=== PATIENT | male | born 1955 | race Caucasian/White ===

== ENCOUNTER 2018-07-18 07:08 | Inpatient (IN) | payer BC ==
[2018-07-18] VITALS (15 sets, daily range): BP systolic 122–155; BP diastolic 69–92
[~2018-07-18] VITALS: Ht 180.3 cm; Wt 92.1 kg
[~2018-07-18 07:08] MED LIST: AMBIEN10 MG ORAL; CYMBALTA30 MG ORAL; HYDROCODON-ACE1 EA13 ORAL; KLONOPIN0.5 MG ORAL; MULTIVITAMINS1 EAC2 ORAL; OMEPRAZOLE40 M1 ORAL; PERCOCET 10-321 EACH ORAL; SPIRONOLACTONE100 MG ORAL; VITAMIN B COMP1 EAC2 ORAL
[2018-07-18] MEDS ORDERED: LR 1000ml 1,000 ML IVLG SCH (09:18)
--- NOTE | 2018-07-18 09:20 | Anethesia Preoperative Eval ---
Anesthesia Pre-op PMH/ROS General Date of Evaluation: Jul 18, 2018 Time of Evaluation: 10:48 Anesthesiologist: Viridiana ASA Score: ASA 3 Mallampati Score Class I : Soft palate, uvula, fauces, pillars visible Class II: Soft palate, uvula, fauces visible Class III: Soft palate, base of uvula visible Class IV: Only hard plate visible Mallampati Classification: Class III Surgeon: Samuel Diagnosis: Back Pain Surgical Procedure: ALIF L3-4 Anesthesia History: none Family History: no anesthesia problems Allergies: Coded Allergies: HYDROMORPHONE (Verified Allergy, Severe, Rash, REDNESS, ITCHING , 07/17/18) GABAPENTIN (Verified Adverse Reaction, Severe, MOOD CHANGES, 07/17/18) Medications: see eMAR Patient NPO?: Yes NPO Date: Jul 17, 2018 NPO Time: 2300 Past Medical History Cardiovascular: Reports: HTN Pulmonary: Reports: asthma Neurologic/Psychiatric: Reports: depression/anxiety, other - Vertigo Musculoskeletal/Integumentary: Reports: other - Back Pain Other: obesity - BMI 30 Anesthesia Pre-op Phys. Exam Physician Exam Last Vital Signs Date Time Temp Pulse Resp B/P (MAP) Pulse Ox O2 Delivery O2 Flow Rate FiO2 07/18/18 09:08 97.5 64 18 136/79 (98) 98 Constitutional: NAD Neurologic: CN 2-12 intact Cardiovascular: RRR Respiratory: CTA Airway Exam Mallampati Score: Class III MO: full ROM: limited Teeth: intact Anesthesia Pre-op A/P Risk Assessment & Plan Assessment: ASA 3 Plan: GA, SED, GlideScope Go Status Change Before Surgery: No Pre-Antibiotics Dru Grams Ancef IV Given Within 1 Hr of Incision: Yes Time Given: 11:06 Carrillo Kemp MD Jul 18, 2018 09:20
[2018-07-18] MEDS ORDERED: Acetaminophen (Non formulary) 100 ML IV ONE (09:30)
[2018-07-18] MEDS ORDERED: Ketorolac 30mg Inj IV PRN ×2 (09:30)
[2018-07-18] MEDS ORDERED: DiphenhydrAMINE 50mg/ml Inj IVP PRN (09:30)
[2018-07-18] MEDS ORDERED: Midazolam 2mg/2ml Inj IVP PRN (09:30)
[2018-07-18] MEDS ORDERED: LORazepam Inj 2mg/ml 1ml IV PRN (09:30)
[2018-07-18] MEDS ORDERED: Metoclopramide 10mg/2ml Inj IVP PRN (09:30)
[2018-07-18] MEDS ORDERED: Meperidine 50mg/ml Inj(FOR RIGORS ONLY) IVP PRN (09:30)
[2018-07-18] MEDS ORDERED: Labetalol 5mg/ml 20ml vial IV PRN (09:30)
[2018-07-18] MEDS ORDERED: fentaNYL 100 mcg/2 mL IV PRN (09:30)
[2018-07-18] MEDS ORDERED: Atropine Sulfate 0.4mg/ml inj IVP PRN (09:30)
[2018-07-18] MEDS ORDERED: Bupivacaine w/Epi 0.5% 30ml Vial INJ ONE (09:59)
[2018-07-18] MEDS ORDERED: Thrombin 5000 units TOPIC ONE (09:59)
[2018-07-18] MEDS ORDERED: Gelfoam Size TOPIC ONE (09:59)
[2018-07-18] MEDS ORDERED: Bacitracin 50000 Units Vial ONE (10:00)
[2018-07-18] MEDS ORDERED: Heparin 5000 units/ml inj ONE (10:04)
[2018-07-18] MEDS ORDERED: fentaNYL 100 mcg/2 mL IV ONE ×3 (10:04→11:59)
[2018-07-18] MEDS ORDERED: Dexamethasone 4mg/ml vial ONE (10:04)
[2018-07-18] MEDS ORDERED: Lidocaine 1% MPF 10mg/ml 5ml ONE (10:04)
[2018-07-18] MEDS ORDERED: Sodium Chloride 10ml vial INJ ONE (10:04)
[2018-07-18] MEDS ORDERED: Lidocaine 1% Plain 30 ml INJ ONE ×2 (10:05→12:30)
[2018-07-18] MEDS ORDERED: Ketamine 500mg Inj ONE (10:05)
[2018-07-18] MEDS ORDERED: Zemuron 50mg/5ml Inj IV ONE (10:15)
--- NOTE | 2018-07-18 10:27 | Pre-Procedure Note/Attestation ---
Pre-Procedure Note/Attestation Complete Prior to Procedure Planned Procedure: not applicable Procedure Narrative: L3-4 ALIF Indications for Procedure Pre-Operative Diagnosis: L3-4 instability Attestation I attest that I discussed the nature of the procedure; its benefits; risks and complications; and alternatives (and the risks and benefits of such alternatives ), prior to the procedure, with the patient (or the patient's legal inbound call center representative). I attest that, if there was a reasonable possibility of needing a blood transfusion, the patient (or the patient's legal inbound call center representative) was given the [facility] standardized written summary, pursuant to the Deangelo Alon Blood Safety Act ([place] Health and Safety Code # 1645, as amended). I attest that I re-evaluated the patient just prior to the surgery and that there has been no change in the patient's H&P, except as documented below: SANDRO HYATT Jul 18, 2018 10:27
[2018-07-18] MEDS ORDERED: LR 1000ml ONE (11:00)
[2018-07-18] MEDS ORDERED: Propofol 1,000mg/ 100ml btl IV ONE (11:00)
[2018-07-18] MEDS ORDERED: NS Irrig 1000ml ONE (11:00)
[2018-07-18] MEDS ORDERED: Sterile Water Irrig 1000ml IRRIG ONE (11:00)
--- NOTE | 2018-07-18 11:28 | Immediate Post-Op Evaluation ---
Immediate Post-Op Evalulation Immediate Post-Op Evalulation Procedure: ALIF L3-4 Date of Evaluation: Jul 18, 2018 Time of Evaluation: 14:08 IV Fluids: 1000 LR Blood Products: 0 Estimated Blood Loss: 150 Urinary Output: 150 Blood Pressure Systolic: 155 Blood Pressure Diastolic: 92 Pulse Rate: 73 Respiratory Rate: 16 O2 Sat by Pulse Oximetry: 99 Temperature (Fahrenheit): 97 Pain Score (1-10): 2 Nausea: No Vomiting: No Complications 0 Patient Status: awake, reacts, patent, extubated, none Hydration Status: adequate Dru Grams Ancef IV Given Within 1 Hr of Incision: Yes Time Given: 11:06 Carrillo Kemp MD Jul 18, 2018 11:28
[2018-07-18] MEDS ORDERED: Labetalol 5mg/ml 20ml vial IV ONE (12:14)
--- NOTE | 2018-07-18 13:45 | NUR ---
NURSE NOTES: REC'D FROM PACU SP ALIF WITH ALLOGRAFT L3-L4. AWAKE/ALERT. IV INFUSING. ABDOMINAL DRESSING DRY AND INTACT. V/S TAKEN. PAIN SCALE 8/10. C/O DRYNESS LEFT. IN NO ACUTE DISTRESS. DR Ani PRATT HERE TO SEE PT FOR FURTHER ORDERS.
--- NOTE | 2018-07-18 13:56 | Brief Operative Note ---
Immediate Post Operative Note Operative Note Chief Complaint: LBP Pre-op Diagnosis: L3-4 instability Procedure: L3-4 ALIF Post-op Diagnosis: same as pre-op Findings: consistent w/pre-op dx studies Surgeon: Pineda Baker Systems Software Manager: Estephanie Ponce Additional Surgeons: Kari Patterson Anesthesiologist: Shon Dillon Anesthesia: general Specimen: yes - Disc Complications: none Condition: stable Fluids: See Anesth Estimated Blood Loss: minimal Drains: none Implant(s) used?: Yes - Trever PLUNKETT TOORAJ Jul 18, 2018 13:56
[2018-07-18] MEDS ORDERED: HYDROmorphone 1mg/ml Carpuject SUBQ SCH (16:27)
[2018-07-18] MEDS ORDERED: PCA HYDROmorphone 30mg/30ml Syr IV PRN (16:28)
[2018-07-18] MEDS ORDERED: Rate Change PCA 1 Each MISC PRN (16:30)
[2018-07-18] MEDS ORDERED: PCA Education Pamphlet MISC ONE (16:30)
[2018-07-18] MEDS ORDERED: Chloraseptic Spray 20mL Bottle ORAL PRN (16:30)
[2018-07-18] MEDS ORDERED: HYDROmorphone 1mg/ml Carpuject SUBQ PRN (16:30)
[2018-07-18] MEDS ORDERED: Zolpidem 5mg tab ORAL PRN (16:45)
--- NOTE | 2018-07-18 16:47 | Diagnostic Imaging Report ---
INDICATION: Pain, intraoperative TECHNIQUE: Intraoperative imaging Fluoroscopy time: 22.4 seconds Total dose: 0.29620 mGym2 Total number of images: 4 COMPARISON: None FINDINGS: 6 surgical tool's projected anterior to the top of L4 and the bottom of L4 on initial images. Subsequent images document placement of anterior fusion hardware and a disc spacer at L3-4. IMPRESSION: Intraoperative imaging, as described
[2018-07-18] MEDS: Artificial Tears 1.4% Op Soln LEFT EYE PRN ×2 (16:49→20:29)
[2018-07-18] MEDS ORDERED: Dronabinol 2.5mg Cap ORAL SCH (18:00)
[2018-07-18] MEDS: Docusate 100mg cap ORAL SCH (18:10)
[2018-07-18] MEDS ORDERED: ceFAZolin sod 1 GM in D5W 55 ML IV SCH (19:00)
--- NOTE | 2018-07-18 19:05 | NUR ---
NURSE NOTES: quiet in bed. in no apparent distress.
--- NOTE | 2018-07-18 19:08 | NUR ---
HAND-OFF: Report given to Misa BLACKWOOD RN.
[2018-07-18] MEDS: PCA shift volume MISC SCH (19:10)
--- NOTE | 2018-07-18 19:26 | NUR ---
NURSE NOTES: Report taken from SEBASTIAN Han. Patient is awake and in bed, partner at bedside. A&Ox4. No signs of distress on 2L NC, is asking to get humidified, will follow up with respiratory. Having some minor complaints of pain and soreness, 04/15, instructed use of RN INTERVENTIONAL (Bolus .). Skin is intact, surgical site c/d/i, ice pack in place. IV site c/d/i and patent, running D5NS+20KCl at 125 mls/hr. Garcia c/d/i and patent, draining yellow urine, continue to monitor output. Bed in lowest position, call light within reach.
[2018-07-18] MEDS: Dronabinol 2.5mg Cap ORAL SCH (20:31)
[2018-07-18] MEDS: Tamsulosin 0.4mg cap ORAL SCH (20:31)
[2018-07-18] MEDS: Zolpidem 5mg tab ORAL PRN (21:55)
[2018-07-18] MEDS: ceFAZolin sod 1 GM in D5W 55 ML IV SCH (23:03)
--- NOTE | 2018-07-18 23:45 | Consultation ---
DATE OF CONSULTATION: 07/18/2018 CONSULTING PHYSICIAN: Dick Burroughs M.D. REFERRING PHYSICIAN: Denis Baker M.D. REASON FOR CONSULTATION: Acute pain consult. HISTORY OF PRESENT ILLNESS: Thank you kindly for consulting me to evaluate and render an opinion as to how to proceed in the management of the patient's acute postoperative lumbar spine pain after his lumbar spine fusion surgery today. The patient is a pleasant 62-year-old gentleman with a long history of lumbar spine pain. He had undergone previous lumbar spine surgery with his last surgery back in January 2018. He was found to have a fractured lumbar spine with his previous surgery and required lumbar spine fusion surgery today. He has been using hydrocodone 20 mg 2 or 3 times per day in addition to nightly oxycodone 10 mg. He also uses Ambien at bedtime for severe insomnia and a couple times per month does use medical marijuana edible to help with his pain control. He also is benzodiazepine dependent using Klonopin 0.5 mg tablets, typically 6 tablets daily. On your request, I saw the patient for acute pain consultation. I saw the patient at bedside. I performed a detailed history and physical examination. I discussed the case with yourself, Dr. Baker along with the hospital pharmacist, Joseph. I also spoke with the Orthopedic floor nurse, SEBASTIAN Han. PAST MEDICAL HISTORY: 1. Acute postoperative lumbar spine pain, status post lumbar spine fusion surgery and instrumentation by Dr. Denis Baker in July 2018. 2. Chronic anxiety. 3. Fibromyalgia. 4. Severe insomnia, chronic. 5. Hypertension. 6. History of severe obesity status post gastric sleeve with significant weight reduction. 7. GERD. 8. Erectile dysfunction. PAST SURGICAL HISTORY: Multiple shoulder surgeries and two previous lumbar spine surgeries. MEDICATIONS AT HOME: Nuvigil, vitamins, Klonopin 0.5 mg 1 to 2 tablets four times per day, typically taking 6 tablets daily, Cymbalta 20 mg b.i.d., [place] 10/325 two tablets b.i.d, multivitamin, Prilosec 40 mg daily, Percocet 10/325 at bedtime, Ambien 10 mg at bedtime, and p.r.n. Viagra. ALLERGIES: Dilaudid is tolerable, but does cause itching. There is an allergy to gabapentin. REVIEW OF SYSTEMS: Per attending physician. SOCIAL HISTORY: The patient does use edible marijuana approximately twice per month. FAMILY HISTORY: Noncontributory. PHYSICAL EXAMINATION: VITAL SIGNS: Age 62, height 180 cm, weight 92 kilograms, and body mass index 28. HEENT: Normocephalic, atraumatic. Nasal cannula oxygen in place. Extraocular muscles intact. Pupils are equal, round, reactive to light, and accommodative. CARDIOPULMONARY: Within normal limits. Regular rate and rhythm. CHEST: Clear to auscultation. ABDOMEN: Tender by incision area with absent bowel sounds. No rebound or guarding. EXTREMITIES: Moving all extremities x4. A 5/5 dorsiflexion and 5/5 plantar flexion in bilateral lower extremities. NEUROLOGIC: Detailed neurologic exam per Dr. Baker. GENITOURINARY: Garcia catheter in place. LABORATORY AND DIAGNOSTIC DATA: Laboratory studies from 06/28/2018 shows BUN 22, glucose 107, creatinine 0.9, sodium 141, potassium 4.1, chloride 106, bicarb 22, and calcium 9.8. Total protein 7.1. Albumin 4.4. Total bilirubin 0.4. Alkaline phosphatase 86, AST 16, and ALT 17. White count 6, hematocrit 43, and platelets 252,000. Hepatitis A, B, and C are all negative. HIV negative. INR 1.1. A 12-lead EKG shows sinus bradycardia, ventricular rate 56, no evidence for acute cardiac ischemia. Bone mineral density testing of the left hip and lumbar spine within normal limits dated 06/22/2018. IMPRESSION: 1. Acute postoperative lumbar spine pain, status post lumbar spine fusion surgery and instrumentation by Dr. Denis Baker in July 2018. 2. Chronic anxiety. 3. Fibromyalgia. 4. Severe insomnia, chronic. 5. Hypertension. 6. History of severe obesity status post gastric sleeve with significant weight reduction. 7. GERD. 8. Erectile dysfunction. TREATMENT RECOMMENDATIONS: The patient's narcotic history as detailed above. He is benzodiazepine dependent. He has been taking short-acting Klonopin chronically at considerable dosing and frequencies. He states that he takes 0.5 mg tablets. He often takes 2 tablets at a time and often takes a total of 3 mg throughout the day. I inquired if he had ever been on a longer-acting benzodiazepine chronically. He denies, but states that he believes he has used Valium before without any adverse problems. The patient is here in the hospital, I would recommend a more of long-acting benzodiazepine. He has been benzodiazepine dependent. He does have chronic fibromyalgia and anxiety. So, I will start him on a dose of Valium 5 mg every 12 hours at 6 a.m. and 6 p.m. for baseline anxiolysis and antispasm treatment. The patient has been using considerable doses of [place] and oxycodone chronically as well. I spoke with the hospital pharmacist, Joseph, to start him on a Dilaudid SENIOR PRINCIPAL PROCESS ENGINEER with a 0.2 mg demand dose at 10-minute lockout and a 4 mg 4-hour limit. There will be no underlying basal rate on the SENIOR PRINCIPAL PROCESS ENGINEER. I have made available a breakthrough dose of Dilaudid 1 mg subcutaneously every three hours p.r.n. for severe breakthrough pain. The patient states that he can tolerate Dilaudid when anti itching medications have been used. Benadryl will be available 25 mg q.6 hours for itching symptoms. The patient does admit to using edible medical marijuana a few times per month. The patient has very severe insomnia, so I have ordered 2.5 mg of nightly Marinol to see if this helps with his insomnia and pain complaints. His Cymbalta will be restarted for mood stabilization and chronic anxiolysis. The patient has stated that his usage of Nuvigil, which he takes daily for his fibromyalgia, can be withheld while he is here in the hospital. I have ordered a breakthrough dose of oxycodone 50 mg orally every three hours p.r.n. for mild pain. I will restart Protonix for GI ulcer prophylaxis. I will add a p.r.n. dose of Mylanta 30 mL q.6 hours in case of any GERD symptom exacerbation. I will continue his clonazepam for panic attacks on a p.r.n. basis q.8 hours 1 mg dosing. I have added Flomax to help her avoid urinary retention issues after surgery. He will be restarted on his spironolactone 20 mg tomorrow morning if his blood pressure tolerates. I have ordered a p.r.n. dose of clonidine 0.1 mg orally every 8 hours for systolic blood pressure readings greater than 160 mmHg. The patient will remain NPO except for ice chips until he shows voodoo of bowel function after his ALIF surgical fusion surgery. I will place him on 125 mL of IV fluids for intravascular rehydration. The patient is complaining of left eye irritation. This likely occurred during surgery. Artificial Tears have ordered to the bedside for topical relief, we would expect spontaneous improvement in the next 24 hours. I have ordered Chloraseptic spray to the bedside to help with any sore throat complaints postoperatively. The patient has good social support with his partner, Dick providing assistance of activities of daily living. The patient seems quite realistic with his pain level expectations with his chronic opioid and benzodiazepine dependence. We will see how the patient progresses with physical therapy tomorrow. Dick Burroughs M.D. DR: TIMMY JOB#: [id number] CC:
[2018-07-19 03:49] VITALS: BP 119/72
[2018-07-19] MEDS: ceFAZolin sod 1 GM in D5W 55 ML IV SCH ×2 (06:24→15:36)
[2018-07-19] MEDS: PCA shift volume MISC SCH ×2 (07:00→19:00)
--- NOTE | 2018-07-19 07:20 | NUR ---
NURSE NOTES: Report received from Jase RN, rounds made. Patient sitting in high fowlers position in bed. Alert, oriented x4, calm. ELEMENTARY SCHOOL REGISTRAR (Dilaudid) and IVF D5 NS +20KCL at 125 ml infusing to RH, site asymptomatic. No NV. Flatulence +. Bowel sounds hypoactive. Pain 6/10 to abdominal surgical site, tolerating ELEMENTARY SCHOOL REGISTRAR, denies need for additional pain medication. O2 3L NC in place, no SOB or distress noted. Abdominal dressing CDI. FC in place, patent, y/cl urine. Bilateral SCDs on. CMS+, skin warm, wiggles, pulses palpable, no NT. Encouraged IS use. Call light in reach, bed in lowest position, will continue to monitor.
--- NOTE | 2018-07-19 07:36 | NUR ---
HAND-OFF: Report given to SEBASTIAN Pizano. Patient is awake and alert, VS stable.
[2018-07-19 08:00] VITALS: BP 139/89
--- NOTE | 2018-07-19 08:00 | Progress Note ---
DATE: 07/19/2018 ACUTE PAIN MANAGEMENT PHYSICIAN PROGRESS NOTE MEDICATIONS: Medication administration record reviewed. Medications include Mylanta, artificial tears, Klonopin, Catapres, Valium, Benadryl, Colace, Marinol, Cymbalta, ___ AIR EXPORT LOGISTICS MANAGER Dilaudid, multivitamin, Narcan, Zofran, oxycodone, Protonix, Chloraseptic spray, Aldactone, Flomax, Ambien, vitamin B. LABORATORY STUDIES: No interval laboratory studies. OBJECTIVE: VITAL SIGNS: Afebrile, pulse 77, respirations 18, blood pressure 119/72, oxygen saturation 98% on supplemental oxygen. I spent over 60 minutes in consultation today. I saw the patient at bedside. I discussed the case with the surgeon, Dr. Baker along with the nurse RN, Jase and charge nurse, RN, Josefina. The patient has been doing quite well overnight. He slept well with his at bedtime Marinol. He has been tolerating the Dilaudid AIR EXPORT LOGISTICS MANAGER without any adverse side effects. The q.12 hours dosing of Valium has been well tolerated and I believe this helped him very well with anxiolysis and to avoid panic attacks. His left eye has improved with usage of the artificial tears; expected resolution of his left eye irritation was expected. The patient will begin ambulating with physical therapy later today. I did encourage the patient to be ____ p.r.n. pain medications as well as with his AIR EXPORT LOGISTICS MANAGER dosing to enable movement in and out of bed. He is having significant pain with log-rolling. I did encourage him to optimize his ambulation efforts with adequate analgesia. The patient is passing positive flatus after his ALIF procedure. I will start him on clear liquids this morning and continue IV fluids as well. For now, the patient is on Flomax to help reduce urinary retention issues once the Garcia catheter ____ did courage aggressive incentive spirometer usage. Overall, the patient is progressing well. We will continue supportive care at this time. Dick Burroughs M.D. DR: LULÚ JOB#: [id number] CC:
[2018-07-19] MEDS: Vitamin B Complex Tab ORAL SCH (08:14)
[2018-07-19] MEDS: Spironolactone 25mg tab ORAL SCH (08:19)
[2018-07-19] MEDS: Docusate 100mg cap ORAL SCH ×3 (08:19→19:00)
--- NOTE | 2018-07-19 10:53 | 48 Hour Post Anesthesia Eval ---
Post Anesthesia Evaluation Procedure: ALIF L3-4 Date of Evaluation: Jul 19, 2018 Time of Evaluation: 10:52 Blood Pressure Systolic: 136 0: 58 Pulse Rate: 72 Respiratory Rate: 20 Temperature (Fahrenheit): 97.6 O2 Sat by Pulse Oximetry: 98 Airway: patent Nausea: No Vomiting: No Pain Intensity: 2 Hydration Status: adequate Cardiopulmonary Status: stable Mental Status/LOC: patient returned to baseline Follow-up Care/Observations: n/a Post-Anesthesia Complications: none Follow-up care needed: N/A Kaden Xiao MD Jul 19, 2018 10:53
--- NOTE | 2018-07-19 11:26 | NUR ---
P.T NOTE: P.T EVALUATION COMPLETED AND TREATMENT INITIATED PER SPINAL PROTOCOL. PLEASE REFER TO .T EVALUATION FOR CURRENT FUNCTIONAL STATUS. SKILLED P.T SERVICE IS WARRANTED TO ENSURE MOBILITY INDEPENDENCE AND SAFETY WHILE ADHERING WITH SPINAL/MOVEMENT PRECAUTIONS.
[2018-07-19 11:30] VITALS: BP 142/78
--- NOTE | 2018-07-19 12:17 | NUR ---
CASE MANAGEMENT: INITIAL REVIEW 62 YO M PRESENTED TO OUR ED FROM HOME FOR SURGERY PMHx: ASTHMA. ANXIETY. HTN. ED. GERD. SI:SPINAL INSTABILITY. HR 77 RR 18 B/P 119/72 SATS 98% ON RA IS: OR MEDS PATIENT ADMITTED TO MED/SURG 07/19/2018 @ 0800 DCP: PATIENT TO BE DISCHARGED TO HOME ONCE MEDICALLY CLEARED. PLAN OF CARE: Pre-op Diagnosis: L3-4 instability Procedure: L3-4 ALIF Post-op Diagnosis: same as pre-op Addendum: 07/19/18 at 1451 by Anjelica Samayoa INTERQUAL MET
[2018-07-19 15:54] VITALS: BP 134/84
--- NOTE | 2018-07-19 15:59 | NUR ---
*-* NO INSURANCE INFORMATION IN THE BAR TO SEND CLINICALS *-*
--- NOTE | 2018-07-19 17:00 | NUR ---
NURSE NOTES: Patient up ambulated in halls x2 with PT and lumbar support brace. Gait steady. Up to chair. Activity tolerance good. Denies SOB or dizziness. Abdominal dressing remains CDI. Medicated with Benadryl due to itching, effective. Will continue to monitor.
--- NOTE | 2018-07-19 19:30 | NUR ---
NURSE NOTES: Received report from SEBASTIAN Pizano and rounds made. Received pt laying in bed wanting to go to the restroom. Assisted pt OOB to the restroom, gait steady, no distress noted. Pain level 3/10. Surgical dressing C/D/I. TOXICOLOGY TEACHER checked and verified. IV R hand patent and intact. Pt safely back in bed w/o any distress noted. Safety measures maintained. Call light within reach. Will contineu to monitor.
--- NOTE | 2018-07-19 19:45 | NUR ---
HAND-OFF: Report given to Ankush Meng RN. Garcia output 1300 ml y/cl. Endorsed POC.
[2018-07-19 20:00] VITALS: BP 132/87
--- NOTE | 2018-07-19 20:00 | NUR ---
NURSE NOTES: Pt c/o abdominal distention and pressure. Denies nausea or vomiting. Mylanta 30cc PO given, tolerated without any problem. Will continue to monitor.
--- NOTE | 2018-07-19 21:00 | NUR ---
NURSE NOTES: Per Pt Karthik helped. Denies any pain at this time. Will continue to monitor.
[2018-07-19] MEDS: Tamsulosin 0.4mg cap ORAL SCH (21:10)
[2018-07-19] MEDS: Dronabinol 2.5mg Cap ORAL SCH (21:10)
[2018-07-19] MEDS: Zolpidem 5mg tab ORAL PRN (22:33)
[2018-07-20] VITALS: BP 115/74
[2018-07-20 06:00] VITALS: BP 134/81
--- NOTE | 2018-07-20 06:00 | NUR ---
NURSE NOTES: Garcia catheter removed per Dr. Burroughs's order. Pt due to void. Urinal at bedside. Will continue to monitor.
--- NOTE | 2018-07-20 06:04 | NUR ---
NURSE NOTES: PHARMACY BUYER discontinued per Dr. Burroughs's order. Pt's pain level 3/10, no distress noted. Instructed pt call if need pain medication.
--- NOTE | 2018-07-20 06:20 | NUR ---
NURSE NOTES: Pt voided per urinal 300ml yellow color urine.
--- NOTE | 2018-07-20 07:25 | NUR ---
NURSE NOTES: Report received from Ankush Meng RN, rounds made. Patient resting in semi-fowlers position in bed. Alert, oriented x4, calm. RH heplock, intact. Voided 300 ml y/cl in urinal without difficulty, at this time. Bilateral SCDs off. No distress on RA. Reinforced IS use. Pain to abdominal surgical site 5/10, denies bloating discomfort. Abdominal surgical site CDI. Call light in reach, bed in lowest position, will continue to monitor.
--- NOTE | 2018-07-20 07:34 | NUR ---
HAND-OFF: Report given to SEBASTIAN Pizano. Pt in stable condition.
--- NOTE | 2018-07-20 07:45 | Progress Note ---
DATE: 07/20/2018 ACUTE PAIN MANAGEMENT PHYSICIAN PROGRESS NOTE MEDICATIONS: Medication administration record reviewed. Medications include Colace, Flomax, Cymbalta, Aldactone, multivitamin, Protonix, vitamin B, Valium, Marinol, Artificial Tears. PRN medications include oxycodone, Zofran, Dilaudid, Catapres, Chloraseptic spray, Klonopin, Benadryl, Mylanta, Ambien. LABORATORY STUDIES: No interval laboratory studies. OBJECTIVE: VITAL SIGNS: Within normal limits. Afebrile, pulse 83, respirations 18, blood pressure 134/81, and oxygen saturation 98% on room air. I spent over 60 minutes in consultation today. I saw the patient at bedside with the nurse RN, Ankush. I spoke with the surgeon, Dr. Baker. The Garcia catheter was removed and the patient has been voiding urine well. He has been passing flatus regularly and his abdominal distention has resolved. The patient has been tolerating full liquid diet without any difficulties. We will advance his diet to soft mechanical. The patient has been ambulating aggressively with physical therapy and doing very well. The patient is breathing comfortably and using his incentive spirometer with good compliance. He has no fevers postoperatively. The patient has excellent support with his partner, Dick who will pick the patient up later today and cares for the patient at home and assists with activities of daily living. At this point, I see no contraindication for discharge trial home. I left the prescription for Valium and Percocet for outpatient usage. The patient follow up with Dr. Baker in approximately one week in the outpatient surgical clinic for follow up. Dick Burroughs M.D. DR: LULÚ JOB#: [id number] CC:
[2018-07-20 08:00] VITALS: BP 126/88
--- NOTE | 2018-07-20 08:00 | Discharge Summary ---
DATE OF ADMISSION: 07/18/2018 DATE OF DISCHARGE: 07/20/2018 ADMITTING PHYSICIAN AND SURGEON: Denis Baker M.D. CONSULTING PHYSICIAN: Dick Burroughs M.D., pain management. ADMITTING DIAGNOSIS: Lumbar L3-L4 instability. POSTOPERATIVE DIAGNOSIS: Lumbar L3-L4 instability. HOSPITAL COURSE: The patient was admitted on July 18, 2018 for elective L3-L4 anterior lumbar interbody fusion surgery for lumbar spine instability. The patient underwent lumbar spine fusion surgery without difficulty and was transferred from the operating room to the recovery room in stable condition. The patient did well in recovery room was transferred to the orthopedic hospital floor in stable condition. Serial monitoring was performed. The patient advanced well with physical therapy and zoroastrianism of bowel function. His diet was advanced without complications and pain was adequately controlled with parental and eventually oral analgesics. The patient was discharged to home in the care of his partner Dick with outpatient surgical follow-up scheduled for approximately one week. There were no complications. Dick Burroughs M.D. DR: Jayde JOB#: [id number] CC:
--- NOTE | 2018-07-20 08:13 | NUR ---
NURSE NOTES: Tolerating soft breakfast, denies NV at this time, encouraged PO fluid intake, will continue to monitor.
--- NOTE | 2018-07-20 09:06 | NUR ---
INSURANCE NO B/AR INFO AT THIS TIME.
[2018-07-20] MEDS: Docusate 100mg cap ORAL SCH (09:18)
[2018-07-20] MEDS: Spironolactone 25mg tab ORAL SCH (09:18)
[2018-07-20] MEDS: Vitamin B Complex Tab ORAL SCH (09:18)
[2018-07-20] MEDS: oxyCODONE 5mg IR tab ORAL PRN ×2 (11:17→14:40)
[2018-07-20 12:00] VITALS: BP 135/74
--- NOTE | 2018-07-20 12:00 | NUR ---
NURSE NOTES: Patient with low grade temperature, 100.4, rechecked at 0922, 99.5. Encouraged IS and hydration. Rechecked at 1200, 97.9. Will continue to monitor.
--- NOTE | 2018-07-20 15:11 | General Progress Note ---
Assessment/Plan Status: doing well, stable, progressing, tolerating diet, ambulating well Status Narrative Pain resolved Frida PO Ambulate Will send home w walker Subjective Date patient seen: Jul 20, 2018 Allergies: Coded Allergies: GABAPENTIN (Verified Adverse Reaction, Severe, MOOD CHANGES, 07/17/18) Objective Last 24 Hour Vital Signs Date Time Temp Pulse Resp B/P (MAP) Pulse Ox O2 Delivery O2 Flow Rate FiO2 07/20/18 12:00 97.9 78 20 135/74 (94) 92 07/20/18 09:22 99.5 07/20/18 09:00 Room Air 07/20/18 08:00 100.4 81 19 126/88 (101) 94 07/20/18 06:04 18 07/20/18 06:00 99.4 83 18 134/81 (98) 98 07/20/18 04:00 18 07/20/18 00:00 18 07/20/18 00:00 99.0 77 18 115/74 (88) 99 07/19/18 21:00 Nasal Cannula 3.0 07/19/18 20:00 18 07/19/18 20:00 100.5 75 18 132/87 (102) 98 07/19/18 16:00 18 07/19/18 15:54 98.1 70 18 134/84 (101) 96 Intake and Output 07/19/18 07/20/18 19:00 07:00 Intake Total 3026 ml 1955 ml Output Total 2150 ml 2100 ml Balance 876 ml -145 ml Intake Oral 1776 ml 580 ml IV Total 1250 ml 1375 ml Output Urine Total 2150 ml 2100 ml Height (Feet): 5 Height (Inches): 11.00 Weight (Pounds): 203 Neurologic: alert - Good strength bilateral lower extremities and sensation intact., oriented x 3, other - Wound c/D/I SANDRO HYATT Jul 20, 2018 15:11
[2018-07-20] MEDS ORDERED: VALIUM5 MG ORAL (16:17)
[2018-07-20] MEDS ORDERED: PERCOCET 10-321 EACH ORAL (16:18)
--- NOTE | 2018-07-20 16:45 | NUR ---
NURSE NOTES: Discharge instructions and prescription x1 reviewed with patient and partner, verbalized understanding. IV heplock discontinued, no active bleeding. Abdominal surgical dressing clean and dry. Raised toilet seat and FWW provided from central supply, given to patient. All belongings, discharge instructions, prescription x1 and DME (raised toilet seat/FWW) sent home with patient. Patient sent down to lobby via , wearing lumbar brace, in stable condition. No BM (Dr. Baker and Dr. Burroughs aware). Discharged home at 1645.
[2018-07-20] MEDS ORDERED: D5 1/2NS 1000ml IV ONE (16:49)
[2018-07-20] MEDS ORDERED: Tubing IV Secondary IV ONE (16:49)
--- NOTE | 2018-07-21 22:15 | Operative Note - Dictated ---
DATE OF OPERATION: 07/20/2018 PREOPERATIVE DIAGNOSIS: Degenerative disc disease lumbosacral spine. POSTOPERATIVE DIAGNOSIS: Degenerative disc disease lumbosacral spine. PROCEDURE: Anterior retroperitoneal exposure interbody fusion L3-L4. SURGEON: Clyde Patterson M.D. CO-SURGEON: Denis Baker M.D. OPERATIVE NOTE: Risks, benefits, complications, alternatives, high-risk nature of the operation were fully explained to the patient and the family. Consent obtained. Risks and benefits have been explained to the patient including, but not limited to bleeding, infection, damage to bowel, damage to ureter, wound infection, wound dehiscence, DVT, PE, loss of limb, and loss of life. OPERATIVE TECHNIQUE: The patient was placed in supine position, prepped and draped in usual sterile fashion. I made an 8 cm incision in the left lower quadrant above the umbilicus. Incision was taken down to the subcutaneous tissue, which was then opened using electrocautery. Left anterior rectus sheath was opened in the direction of the wound. The posterior rectus sheath was excised superiorly and inferiorly about 3 cm. Bookwalter retractor was placed retracting the bowel contents to the right and left rectus muscle to the left. I dissected the left common iliac artery and vein and external iliac artery and vein. The left iliolumbar vessels were ligated using titanium clip. The left aorta and vena cava were lateralized to the right side and lowest two segmental artery and vein on the left side were also ligated using titanium clips. Exposure of L3-L4 levels was obtained by mobilizing the aorta and vena cava and left common iliac artery and vein to the right. We proceeded with a diskectomy and placement of the new cage. Please refer to Dr. Baker's dictation for the details of that operation. After all the x-rays were satisfactorily read by Dr. Baker and needle counts and sponge count was correct, the wound was irrigated using antibiotic solution. The posterior rectus sheath was closed using 2-0 Vicryl suture in a running fashion. Anterior rectus sheath was closed using #1 Vicryl suture in a running fashion. The wound was irrigated again and closed in 2 layers of 2-0 Vicryl suture for subcutaneous and Steri-Strips for the skin. The patient tolerated the procedure well. Clyde Patterson MD DR: KARELY JOB#: [id number] CC:
--- NOTE | 2018-07-22 09:10 | NUR ---
CASE MANAGEMENT: CM review and clinical information (face sheet/ ER MD notes/ H&P) faxed to AMANDA MCGINNIS @ [phone] . REF# [id number]
== END 2018-07-20 16:50 | disposition home or self-care (01) | DRG 460 ==
LOC: SDSOVERFLO 08:15 → 3E 15:47
PROC: 0SG00A0 Fusion of Lumbar Vertebral Joint with Interbody Fusion Device, Anterior Approach, Anterior Column, Open Approach (ICD-10-PCS; principal; 2018-07-20)
PROC: 0SB20ZZ Excision of Lumbar Vertebral Disc, Open Approach (ICD-10-PCS; principal; 2018-07-20)
DX: M53.2X6 Spinal instabilities, lumbar region (principal); F13.20 Sedative, hypnotic or anxiolytic dependence, uncomplicated; F11.20 Opioid dependence, uncomplicated; M51.37 Other intervertebral disc degeneration, lumbosacral region; F41.9 Anxiety disorder, unspecified; M79.7 Fibromyalgia; F51.04 Psychophysiologic insomnia; I10 Essential (primary) hypertension; K21.9 Gastro-esophageal reflux disease without esophagitis; Z98.84 Bariatric surgery status; Z88.6 Allergy status to analgesic agent; G89.18 Other acute postprocedural pain
CPT/HCPCS: 36415; 72020; 76000; 86850; 86900; 86901; 87081; 94003; 94150; J2405